=== PATIENT | female | born 1950 | race Caucasian/White ===

== ENCOUNTER → 2021-11-23 10:46 | Outpatient (CLI) | payer MEDICARE, SELFPAY | PROVIDERS: PCP Internal Medicine; Referring Provider Internal Medicine; Visit Provider Internal Medicine | DX: Z13.820 Encounter for screening for osteoporosis (principal); M85.89 Other specified disorders of bone density and structure, multiple sites; Z78.0 Asymptomatic menopausal state | CPT/HCPCS: 77080 ==

== ENCOUNTER → 2021-12-22 10:04 | Outpatient (CLI) | payer MEDICARE, SELFPAY ==
[2021-12-22 11:58] LABS: Hematocrit 40.3 % (36-46); Hemoglobin 14.2 g/dL (12.0-16.0); Mean Corpuscular HGB Conc 35.3 % (30-36); Mean Corpuscular Hemoglobin 35.8 PG (26-34); Mean Corpuscular Volume 101.5 fL (80-100); Platelet Count 120 X10^3/uL (150-400); Red Blood Cell Count 3.97 X10^6/uL (4.0-5.2); Red Cell Distribution Width 12.6 % (11.6-14.8); White Blood Cell Count 3.6 X10^3/uL (4.5-11.0)
[2021-12-22 12:09] LABS: Alanine Aminotransferase 39 IU/L (<35); Albumin 4.8 g/dL (3.5-5.0); Albumin Globulin Ratio 1.4 (1.0-2.8); Alkaline Phosphatase 88 U/L (38-126); Aspartate Aminotransferase 53 IU/L (14-36); BUN Creatinine Ratio 13.9 (6-22); Bilirubin Total 0.9 mg/dL (0.2-1.3); Blood Urea Nitrogen 11 mg/dL (7-17); Calcium 9.5 mg/dL (8.4-10.2); Carbon Dioxide 31 mmol/L (22-32); Chloride 100 mmol/L (98-107); Cholesterol 311 mg/dL (140-199); Estimated Glomerular Filt Rate > 60 mL/min (>60); Globulin 3.5 g/dL (1.7-4.1); Glucose 99 mg/dL (80-110); HEMOLYSIS < 15 (0-50); Sodium 140 mmol/L (137-145); Total Protein 8.3 g/dL (6.3-8.2); Triglycerides 93 mg/dL (35-150)
[2021-12-22 12:18] LABS: HDL Cholesterol 162 mg/dL (40-60); LDL Cholesterol Calculated 130 mg/dL (<100)
[2021-12-22 18:19] LABS: Free T4, Direct Thyroxine 0.77 ng/dL (0.78-2.19)
== END ==
PROVIDERS: PCP Internal Medicine; Referring Provider Internal Medicine; Visit Provider Internal Medicine
DX: E78.2 Mixed hyperlipidemia (principal); E03.9 Hypothyroidism, unspecified; M85.80 Other specified disorders of bone density and structure, unspecified site
CPT/HCPCS: 80053; 80061; 84439; 84443; 85027

== ENCOUNTER → 2022-12-22 16:35 | Outpatient (CLI) | payer MEDICARE, SELFPAY ==
[2022-12-22 18:23] LABS: Cholesterol 269 mg/dL (140-199); Triglycerides 74 mg/dL (35-150)
[2022-12-22 18:34] LABS: HDL Cholesterol 145 mg/dL (40-60); LDL Cholesterol Calculated 109 mg/dL (<100)
[2022-12-22 18:52] LABS: TSH w/ Reflex to FT4 4.53 uIU/mL (0.47-4.68)
== END ==
PROVIDERS: PCP Internal Medicine; Referring Provider Internal Medicine; Visit Provider Internal Medicine
DX: E03.9 Hypothyroidism, unspecified (principal); E78.2 Mixed hyperlipidemia
CPT/HCPCS: 36415; 80061; 84443

== ENCOUNTER → 2023-12-25 14:03 | Outpatient (CLI) | payer MEDICARE, SELFPAY ==
[2023-12-25 15:41] LABS: Aspartate Aminotransferase 36 IU/L (14-36); Blood Urea Nitrogen 13 mg/dL (7-17); Calcium 9.9 mg/dL (8.4-10.2); Carbon Dioxide 27 mmol/L (22-32); Chloride 103 mmol/L (98-107); Cholesterol 283 mg/dL (140-199); Estimated Glomerular Filt Rate > 60 mL/min (>60); Glucose 153 mg/dL (80-110); HEMOLYSIS < 15 (0-50); Potassium 3.9 mmol/L (3.4-5.1); Sodium 138 mmol/L (137-145); Triglycerides 84 mg/dL (35-150)
[2023-12-25 15:52] LABS: HDL Cholesterol 185 mg/dL (40-60); LDL Cholesterol Calculated 81 mg/dL (<100)
[2023-12-25 16:11] LABS: TSH w/ Reflex to FT4 1.11 uIU/mL (0.47-4.68)
== END ==
PROVIDERS: PCP Internal Medicine; Referring Provider Internal Medicine; Visit Provider Internal Medicine
DX: E03.9 Hypothyroidism, unspecified (principal); E78.2 Mixed hyperlipidemia
CPT/HCPCS: 36415; 80048; 80061; 84443; 84450

== ENCOUNTER 2024-08-28 13:52 | Day surgery (SDC) | payer MEDICARE, SELFPAY ==
--- NOTE | 2024-08-28 | PATH_ITS ---
[facility] Accession Number: [id number] No. of containers..01 Tissue . 01 Material submitted: . esophagus - ESOPHAGUS, UPPER, TUMOR . 01 Diagnosis: UPPER ESOPHAGUS, BIOPSY: Invasive, moderately differentiated squamous cell carcinoma. MRV 08/30/2024 1742 Local . 01 Comment: Immunohistochemistry for p16 has been ordered and will be reported in an addendum. . The results were reported to Dr. Horne's office on 08/30/2024 at 4:30 pm. . As part of routine senior quality technician, this case has been reviewed by Dr. Quinn Dodge, who agrees with the interpretation. . - Technical Note: The immunohistochemical stains reported were performed with appropriate controls at [facility] ([facility] [address], [facility] [address]). This test was developed and performance characteristics validated by [facility]. It has not been cleared or approved by the Food and Drug Administration. . 01 Electronically signed: . Kelley Wilks DO, Pathologist NPI- [id number] . 01 Gross description: . ESOPHAGUS, UPPER, TUMOR: Received in formalin are 2 fragment(s) of gomez, soft tissue measuring 0.3 x 0.3 x 0.2 cm to 0.4 x 0.3 x 0.2 cm submitted entirely in 1 cassette(s) /ANAHI 08/29/20242055 Local . 01 Pathologist provided ICD-10: C15.3 . 01 CPT . 469292, [id number] Specimen Comment: A courtesy copy of this report has been sent to [phone] Performed at: [address] [place] [address] [address], [place], [place] [id number] MD Quinn Dodge MD Phone: [phone]
[2024-08-28 14:23] VITALS: BP 154/82; PULSE 84; RESP 20; TEMP 36.5; O2SAT 98
--- NOTE | 2024-08-28 14:38 | P.OP.EGD_ITS ---
Operative Date/Time/Diagnoses Date of procedure: 08/28/24 Time of procedure: 15:00 Pre-op diagnosis: See indications Post-op diagnosis: same Procedure & Clinicians Study performed: EGD Same procedure as scheduled: Yes Indications: Development of right recurrent laryngeal palsy and subsequent CT scan showing right paratracheal node mass. In addition has difficulty with dysphagia from mid to upper substernal down to GE junction need for EGD to help sort out the issues. Surgeon: Soledad Horne Procedure Notes Procedure in detail: After informed consent was obtained the patient was placed in left lateral decubitus position. The video upper scope was placed into the oropharynx and with the patient's help swallowed into the esophagus. The esophagus stomach duodenal were carefully examined. On withdrawal, retroflexed view the GE juncti on was performed. The scope was removed. The patient tolerated the procedure well. Blood loss none complications none Sedation mac Findings 1. Tumor seen almost immediately after entering the upper esophagus. The upper border was at 21 cm. The 1st section of 3-4 cm appeared scarred and very abnormal but had no heaped up tumor. Below 24 cm until 28 cm there was substantial narrowing of the esophagus with nodularity. This was biopsied multiple times. The tumor felt very hard. 2. Beginning at 28 cm the remainder of the esophagus looked completely normal. 3. Normal stomach other than a small to moderate hiatal hernia Four. Normal duodenal bulb and sweep I will be discussing case with Dr. Silva, her about getting in to see Oncology seen to than later. Photos were given to the patient
[2024-08-28] MEDS: LACTATED RINGERS 1,000 ML 84 ML IV (14:41)
--- NOTE | 2024-08-28 14:43 | PM.HP.IH.1 ---
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 Patient has issues with dysphagia however can eat solid food without too much difficulty. [facility] Medical History (Updated 08/27/24 @ 10:31 by Cristobal Tejeda MD) Paratracheal lymphadenopathy Depression, major, recurrent Mixed hyperlipidemia Osteopenia Family history of colon cancer in father Herpesviral infection, unspecified Generalized anxiety disorder Allergic rhinitis Asthma, mild intermittent Acquired hypothyroidism Social History details: (Julius) Smoking Status: Never smoker Meds Home Medications and Allergies Home Medications ?Medication ?Instructions ?Recorded ?Confirmed ?Type acyclovir 5 % topical cream 1 applic topical DAILY PRN cold 11/10/21 08/28/24 Rx sores #5 grams cetirizine 10 mg capsule (Zyrtec) 10 mg PO DAILY PRN allergy symptoms 11/10/21 08/28/24 History multivitamin 1 tab PO DAILY 11/10/21 08/28/24 History valacyclovir 500 mg tablet 500 mg PO BID #14 tabs 07/13/22 08/28/24 Rx albuterol sulfate 90 mcg/actuation 2 puff inhalation Q4-6H PRN 07/21/22 08/28/24 Rx aerosol inhaler shortness of breath or wheezing #8.5 grams levothyroxine 150 mcg tablet 150 mcg PO DAILY #90 tabs 03/21/23 08/28/24 Rx (Synthroid) alprazolam 0.5 mg tablet 0.5 mg PO DAILY PRN anxiety #30 04/28/24 08/28/24 Rx tabs tacrolimus 0.1 % topical ointment 1 applic topical Q OTHER DAY PRN 04/28/24 08/28/24 Rx facial rash #30 grams Allergies Allergy/AdvReac Type Severity Reaction Status Date / Time No Known Drug Allergies Allergy Verified 08/28/24 14:21 Exam Vital Signs (past 8 hours): - 08/28/24 14:23 Temperature 97.7 F Pulse Rate 84 Respiratory Rate 20 Blood Pressure 154/82 H Pulse Oximetry 98 Oxygen Delivery Method Room Air Oxygen Delivery Method Room Air Narrative Exam Narrative: Oropharynx free of lesions Assessment & Plan Assessment & Plan narrative: Findings pointing towards right-sided paratracheal node mass impinging on the right recurrent laryngeal nerve. Need to evaluate upper esophagus but also mid to lower esophagus given the amount of dysphagia this present. Risks, benefits, alternatives have been explained. Time-Based Coding :: [TOTAL MINUTES] spent with patient and on the chart (including review of chart, obtaining history, exam, reviewing outside data, placing orders, documenting exam and treatment plan, and counseling patient) on [DATE]. PROFEE It Support Specialist Document charge(s): No
[2024-08-28 15:00] VITALS: BP 117/70; PULSE 87; RESP 16; TEMP 36.9; O2SAT 97
[2024-08-28 15:05] VITALS: BP 122/74; PULSE 80; RESP 17; O2SAT 94
[2024-08-28 15:17] VITALS: BP 149/81; PULSE 80; RESP 15; O2SAT 96
[2024-08-28 15:21] VITALS: BP 140/86; PULSE 79; RESP 14; TEMP 36.3; O2SAT 98
== END 2024-08-28 15:47 | disposition home or self-care (01) ==
PROVIDERS: PCP Internal Medicine; Referring Provider Internal Medicine Gastroenterology; Visit Provider Internal Medicine Gastroenterology
PROC: 0DJ08ZZ Inspection of Upper Intestinal Tract, Via Natural or Artificial Opening Endoscopic (ICD-10-PCS; CPT 43239; principal; 2024-08-28 15:15)
DX: C15.3 Malignant neoplasm of upper third of esophagus (principal); K44.9 Diaphragmatic hernia without obstruction or gangrene
CPT/HCPCS: 43239; J2704

== ENCOUNTER → 2024-12-14 10:08 | Outpatient (CLI) | payer MEDICARE, SELFPAY ==
[2024-12-14 11:32] LABS: Add Manual Diff / Slide Review NO; Hematocrit 30.0 % (36-46); Hemoglobin 10.7 g/dL (12.0-16.0); Lymphocytes Absolute Auto 400 /uL (1100-4500); Mean Corpuscular HGB Conc 35.8 % (30-36); Mean Corpuscular Hemoglobin 35.9 PG (26-34); Mean Corpuscular Volume 100.3 fL (80-100); Platelet Count 204 X10^3/uL (150-400)
[2024-12-14 11:51] LABS: Alanine Aminotransferase 18 IU/L (<35); Albumin 3.9 g/dL (3.5-5.0); Albumin Globulin Ratio 1.3 (1.0-2.8); Alkaline Phosphatase 84 U/L (38-126); Blood Urea Nitrogen 12 mg/dL (7-17); Calcium 9.7 mg/dL (8.4-10.2); Carbon Dioxide 25 mmol/L (22-32); Chloride 102 mmol/L (98-107); Estimated Glomerular Filt Rate > 60 mL/min (>60); Globulin 2.9 g/dL (1.7-4.1); Glucose 107 mg/dL (70-99); HEMOLYSIS < 15 (0-50); Potassium 4.5 mmol/L (3.4-5.1); Sodium 136 mmol/L (137-145); Total Protein 6.8 g/dL (6.3-8.2)
== END ==
PROVIDERS: PCP Internal Medicine; Referring Provider Internal Medicine; Visit Provider Internal Medicine
DX: D64.9 Anemia, unspecified (principal); E78.2 Mixed hyperlipidemia; R00.0 Tachycardia, unspecified
CPT/HCPCS: 36415; 80053; 85025